=== PATIENT | male | born 1965 | race Caucasian/White ===

== ENCOUNTER 2024-01-09 11:28 | Inpatient (IN) | payer BC ==
[~2024-01-09] VITALS: Ht 177.8 cm; Wt 99.8 kg
[2024-01-09 12:14] LABS: BASOPHILS % (AUTO) 0.7 % (0.0-2.0); EOSINOPHILS # (AUTO) 0.2 K/uL (0.0-0.7); EOSINOPHILS % (AUTO) 3.7 % (0.0-6.0); HEMATOCRIT 41 % (39-51); HEMOGLOBIN 14.3 g/dL (13.5-17.5); LYMPHOCYTES # (AUTO) 2.1 K/uL (0.8-4.8); LYMPHOCYTES % (AUTO) 49.4 % (20.0-44.0); MEAN CORPUSCULAR HEMOGLOBIN 27 PG (26.0-33.0); MEAN CORPUSCULAR HGB CONC 35 g/dl (31.0-36.0); MEAN CORPUSCULAR VOLUME 79 fL (80-96); MONOCYTES # (AUTO) 0.4 K/uL (0.1-1.30); MONOCYTES % (AUTO) 8.6 % (2.0-12.0); NEUTROPHILS # (AUTO) 1.6 K/uL (1.8-8.9); NEUTROPHILS % (AUTO) 37.6 % (43.0-81.0); PLATELET COUNT (AUTO) 183 K/uL (150-450); RED BLOOD CELL COUNT(AUTO) 5.24 MIL/uL (4.5-6.0); RED CELL DISTRIBUTION WIDTH 14.7 % (11.5-15.0); WHITE BLOOD COUNT (AUTO) 4.2 K/uL (4.3-11.0)
[2024-01-09 12:34] LABS: CARBON DIOXIDE 30 mmol/L (21-32); CHLORIDE 105 mmol/L (98-107); CREATININE 0.9 mg/dL (0.6-1.3); GLUCOSE 110 mg/dL (74-106); POTASSIUM 3.8 mmol/L (3.5-5.1); SODIUM SERUM 142 mmol/L (136-145); UREA NITROGEN, BLOOD 15 mg/dL (7-18)
[2024-01-09 12:41] LABS: INR 1.01 (0.91-1.10); PARTIAL THROMBOPLASTIN TIME 28.8 SEC (24.3-34.3); PROTHROMBIN TIME 10.7 SECS (9.2-11.1)
[2024-01-09] MEDS ORDERED: LOSA1TAB39 PO (13:02)
[2024-01-09] MEDS ORDERED: FENO54TA PO (13:02)
[2024-01-09] MEDS ORDERED: ASPIRIN EC 325 MG TABLET.DR PO ONE (14:13)
[2024-01-09] MEDS: ASPIRIN EC 325 MG TABLET.DR PO ONE (14:15)
[2024-01-09 14:45] VITALS: BP 140/106; TEMP 97.9; O2SAT 94
[2024-01-09] MEDS ORDERED: ACETAMINOPHEN 325 MG TABLET PO PRN (15:30)
[2024-01-09] MEDS ORDERED: Z GUARD REMEDY 4 OZ OINT TP PRN (15:30)
[2024-01-09] MEDS ORDERED: ONDANSETRON HCL/PF 4 MG/2 ML VIAL IVP PRN (15:30)
[2024-01-09] MEDS ORDERED: MAGNESIUM HYDROXIDE 30 ML UDC PO PRN (15:30)
[2024-01-09] MEDS ORDERED: MAG HYDROX/AL HYDROX/SIMETH 30 ML UDC PO PRN (15:30)
[2024-01-09] MEDS ORDERED: ZOLPIDEM TARTRATE 5 MG TABLET PO PRN (15:30)
[2024-01-09 16:00] VITALS: BP_SYST 140; BP_SYST 142; BP_DIAS 106; BP_DIAS 88; TEMP 97.9; O2SAT 94; O2SAT 95
[2024-01-09] MEDS: ENOXAPARIN SODIUM 40 MG/0.4 ML DISP.SYRIN SQ SCH (17:00)
[2024-01-10 01:00] VITALS: BP 141/90; TEMP 98.1; O2SAT 94
[2024-01-10 04:22] VITALS: BP 143/95; TEMP 97.9; O2SAT 96
[2024-01-10 07:00] VITALS: BP 156/94; TEMP 97.9; O2SAT 93
[2024-01-10 08:14] LABS: BASOPHILS % (AUTO) 0.3 % (0.0-2.0); EOSINOPHILS # (AUTO) 0.2 K/uL (0.0-0.7); EOSINOPHILS % (AUTO) 3.2 % (0.0-6.0); HEMATOCRIT 42 % (39-51); HEMOGLOBIN 14.2 g/dL (13.5-17.5); LYMPHOCYTES # (AUTO) 2.9 K/uL (0.8-4.8); LYMPHOCYTES % (AUTO) 61.6 % (20.0-44.0); MEAN CORPUSCULAR HEMOGLOBIN 27 PG (26.0-33.0); MEAN CORPUSCULAR HGB CONC 34 g/dl (31.0-36.0); MEAN CORPUSCULAR VOLUME 78 fL (80-96); MONOCYTES # (AUTO) 0.4 K/uL (0.1-1.30); MONOCYTES % (AUTO) 8.3 % (2.0-12.0); NEUTROPHILS # (AUTO) 1.3 K/uL (1.8-8.9); NEUTROPHILS % (AUTO) 26.6 % (43.0-81.0); PLATELET COUNT (AUTO) 155 K/uL (150-450); RED BLOOD CELL COUNT(AUTO) 5.32 MIL/uL (4.5-6.0); RED CELL DISTRIBUTION WIDTH 14.4 % (11.5-15.0); WHITE BLOOD COUNT (AUTO) 4.8 K/uL (4.3-11.0)
[2024-01-10 08:24] LABS: MAGNESIUM 2.2 mg/dL (1.8-2.4); PHOSPHORUS 3.9 mg/dL (2.5-4.9); POTASSIUM 3.6 mmol/L (3.5-5.1)
[2024-01-10] MEDS: PANTOPRAZOLE 40 MG TABLET.DR PO SCH (08:49)
[2024-01-10] MEDS: ASPIRIN 81 MG TAB.CHEW PO SCH (08:49)
[2024-01-10] MEDS ORDERED: IV NS 0.9% 250 ML IV ONE (09:08)
[2024-01-10] MEDS ORDERED: CT SWABBABLE VALVE TRANS SET 1 EA INFUS.SET MC ONE (09:08)
[2024-01-10] MEDS ORDERED: IOHEXOL-350 100 ML VIAL IV ONE (09:08)
[2024-01-10 09:29] LABS: THYROID STIMULATING HORMONE 2.72 uIU/mL (0.358-3.74)
[2024-01-10 11:11] LABS: THYROID STIMULATING HORMONE 2.94 uIU/mL (0.358-3.74)
[2024-01-10] MEDS ORDERED: GADOTERATE MEGLUMINE 10 MMOL/20 ML VIAL IV ONE (11:34)
[2024-01-10 16:00] VITALS: BP 149/90; TEMP 97.7; O2SAT 93
[2024-01-10 20:00] VITALS: BP 138/100; TEMP 98.1; O2SAT 99
[2024-01-11] VITALS: BP 134/91; TEMP 97.7; O2SAT 94
[2024-01-11 04:00] VITALS: BP 149/93; TEMP 98.1; O2SAT 99
[2024-01-11 06:50] LABS: MAGNESIUM 2.1 mg/dL (1.8-2.4); PHOSPHORUS 4.2 mg/dL (2.5-4.9); POTASSIUM 3.5 mmol/L (3.5-5.1)
[2024-01-11 06:54] LABS: BASOPHILS % (AUTO) 0.9 % (0.0-2.0); EOSINOPHILS # (AUTO) 0.1 K/uL (0.0-0.7); EOSINOPHILS % (AUTO) 3.1 % (0.0-6.0); HEMATOCRIT 41 % (39-51); HEMOGLOBIN 14.3 g/dL (13.5-17.5); LYMPHOCYTES # (AUTO) 2.9 K/uL (0.8-4.8); LYMPHOCYTES % (AUTO) 60.8 % (20.0-44.0); MEAN CORPUSCULAR HEMOGLOBIN 27 PG (26.0-33.0); MEAN CORPUSCULAR HGB CONC 35 g/dl (31.0-36.0); MEAN CORPUSCULAR VOLUME 78 fL (80-96); MONOCYTES # (AUTO) 0.4 K/uL (0.1-1.30); MONOCYTES % (AUTO) 7.8 % (2.0-12.0); NEUTROPHILS # (AUTO) 1.3 K/uL (1.8-8.9); NEUTROPHILS % (AUTO) 27.4 % (43.0-81.0); PLATELET COUNT (AUTO) 153 K/uL (150-450); RED BLOOD CELL COUNT(AUTO) 5.27 MIL/uL (4.5-6.0); RED CELL DISTRIBUTION WIDTH 14.6 % (11.5-15.0); WHITE BLOOD COUNT (AUTO) 4.8 K/uL (4.3-11.0)
[2024-01-11 07:07] LABS: FOLIC ACID 10.3 ng/mL (>3.0)
[2024-01-11 08:42] VITALS: BP 155/110
[2024-01-11] MEDS: HYDROCHLOROTHIAZIDE 25 MG TABLET PO SCH (08:42)
[2024-01-11] MEDS: LOSARTAN POTASSIUM 50 MG TABLET PO SCH (08:42)
[2024-01-11] MEDS: Fenofibrate 48 MG TABLET PO SCH (08:43)
[2024-01-11] MEDS ORDERED: ASPI-1169 PO (11:06)
[2024-01-11] MEDS ORDERED: SIMV-49 PO (21:14)
== END 2024-01-11 14:30 | disposition home or self-care (01) | DRG 66 ==
LOC: ER 11:38 → TELE 14:21
PROVIDERS: ADMIT Student in an Organized Health Care Education/Training Program; ATTEND Student in an Organized Health Care Education/Training Program
DX: I63.9 Cerebral infarction, unspecified (principal); I10 Essential (primary) hypertension; Z79.82 Long term (current) use of aspirin; R29.702 NIHSS score 2; E78.5 Hyperlipidemia, unspecified; R93.1 Abnormal findings on diagnostic imaging of heart and coronary circulation; H53.47 Heteronymous bilateral field defects
CPT/HCPCS: 36415; 70450-TC; 70496-TC; 70498-TC; 70553-TC; 80048-TC; 80061-TC; 82607-TC; 83735-TC; 83921; 84100-TC; 84425; 84443-TC; 84484-TC; 85025-TC; 85730-TC; 92526; 92611-TC; 93307-TC; 97110-TC; 97112-TC; 97116-TC; 97535-TC; A9575; G0378; J1650; J7050; Q9967